=== PATIENT | male | born 1985 | race Caucasian/White ===

== ENCOUNTER 2016-03-28 17:45 | Emergency (ER) | payer OTHER ==
[~2016-03-28] VITALS: Ht 180.3 cm; Wt 86.2 kg
[~2016-03-28 17:45] MED LIST: AUGMENTIN 875 M1 TAB PO; EPIPEN 2-P0.3 MG/0.3 IM; PERCOCET 325 MG1 TA2 PO; PREDNISONE50 M1 PO
[2016-03-28 18:03] VITALS: BP 158/79
[2016-03-28 19:05] LABS: ABSOLUTE BASOPHIL COUNT 0.1 /CUMM (0.0-0.2); ABSOLUTE EOSINOPHIL COUNT 0.4 /CUMM (0.0-0.7); ABSOLUTE GRANULOCYTE CT 12.1 /CUMM (1.4-6.5); ABSOLUTE LYMPH COUNT 1.8 /CUMM (1.2-3.4); ABSOLUTE MONOCYTE COUNT 0.9 /CUMM (0.10-0.60); BASOPHIL % 0.5 % (0.0-2.0); EOSINOPHIL % 2.7 % (0-5); GRANULOCYTE % 78.9 % (42.2-75.2); HEMATOCRIT 45.3 % (42-52); MEAN CORPUSCULAR HGB 30.8 PG (27.0-31.0); MEAN CORPUSCULAR HGB CONC 33.7 G/DL (33.0-37.0); MEAN CORPUSCULAR VOLUME 91.3 FL (80.0-94.0); MEAN PLATELET VOLUME 8.3 FL (7.4-10.4); PLATELET COUNT 230 /CUMM (130-400); RBC DISTRIBUTION WIDTH 13.4 % (11.5-14.5); RED BLOOD CELL CT 4.96 /CUMM (4.70-6.10); WHITE BLOOD CELL COUNT 15.4 /CUMM (4.8-10.8)
--- NOTE | 2016-03-28 19:20 | ED GENERAL ADULT ---
History of Present Illness General Chief Complaint: Upper Respiratory Sx/Fever Stated Complaint: URI Source: patient Exam Limitations: no limitations Allergies Coded Allergies: venom-honey bee (bee venom (honey bee)) (Severe, ANAPHYLAXIS 10/23/15) Triage Note: RECEIVED 30 YO MALE C/O "I FEEL LIKE CRAP". PT REPORTS FEELING WARM, PRODUCTIVE YELLOW COUGH, BODY ACHES AND PAIN X 4 DAYS. NO C/O N/V/D OR ABDOMINAL PAIN Triage Nurses Notes Reviewed? yes HPI: This patient is a 30-year-old male who presented to the emergency department today for evaluation of upper respiratory complaints. The patient reported that his symptoms began approximately one week ago with a cough. The patient reported that his symptoms seemed to subside earlier in the week, but they resumed a couple days ago. He reported that his cough is productive of sputum. He reported intermittent chills and tactile fevers. He reported a couple days ago he was having some pain in his ears that felt like, "they need to pop." The patient also reported that one of the days this week he had a slightly sore throat, but not currently. He reported nasal congestion and face pressure. He denied any chest pain, difficulty breathing, abdominal pain, nausea, vomiting. (ESPERANZA GAONA,RBOERTO) Vital Signs & Intake/Output Vital Signs & Intake/Output ED Intake and Output 03/29 0000 03/28 1200 Intake Total 0 Output Total Balance 0 Intake, Oral 0 Patient 190 lb Weight Reconcile Medications AMOXICILLIN/POTASSIUM CLAV (Augmentin 875-125 Tablet) 875 MG/125 MG TAB 1 TAB PO BID DENTAL INFECTION Azithromycin 250 MG TABLET 1 DP PO AD SINUSITIS 2 the first day followed by 1 for days 2-5 Benzonatate (Tessalon Perle) 100 MG CAPSULE 1 CAP PO TID PRN COUGH Epinephrine (Epipen 2-Barber) 0.3 MG/0.3 ML AUTO.INJCT 1 INJ IM X1 PRN SEVERE ALLERGIC REACTION CALL 911 IF YOU USE THE EPIPEN OXYCODONE HCL/ACETAMINOPHEN (Percocet 5-325 MG Tablet) 325 MG/5 MG TAB 1-2 TAB PO Q4-6 PRN PRN PAIN EIGHT TABS...[id number] Prednisone 50 MG TABLET 1 TAB PO DAILY ALLERGIC REACTION (SERGE ADRIAN,YONG Warren) Past History Travel History Traveled to [place] past 21 day No Medical History Any Pertinent Medical History? see below for history Neurological: NONE EENT: NONE Cardiovascular: NONE Respiratory: NONE Gastrointestinal: NONE Hepatic: NONE Renal: NONE Musculoskeletal: NONE Psychiatric: NONE Endocrine: NONE Blood Disorders: NONE Cancer(s): NONE INSTALLATION COORDINATOR/Reproductive: NONE Surgical History Surgical History: N Psychosocial History What is your primary language Surinamese Tobacco Use: Current Daily Use Daily Tobacco Use Amount/Type: => 5 Cigarettes daily Family History Family History, If Any: MOTHER FH: diabetes mellitus Hx Contributory? No (ROBERTO MATA PA-C) Review of Systems Review of Systems Constitutional: Reports: see HPI. EENTM: Reports: see HPI. Respiratory: Reports: see HPI. Cardiovascular: Reports: no symptoms. GI: Reports: no symptoms. Genitourinary: Reports: no symptoms. Musculoskeletal: Reports: no symptoms. Skin: Reports: no symptoms. Neurological/Psychological: Reports: no symptoms. All Other Systems: Reviewed and Negative (ROBERTO MATA PA-C) Physical Exam Physical Exam General Appearance: well developed/nourished, no apparent distress, alert, awake Comments: Well-developed well-nourished person in no acute distress HEENT: Normal EENT exam, head normocephalic, moist mucous membranes PERRLA bilaterally, nasal congestion, mild pharyngeal erythema with no oral pharyngeal lesions or edema, no uvular shift, no tonsillar exudates, no trismus or drooling, bilateral external auditory canals with mild amount of cerumen and no erythema, bilateral TM nonbulging with mild amount of erythema Neck: Supple, no lymphadenopathy Back: Normal gait Cardiovascular: Regular rate and rhythm with no murmurs Respiratory: Chest nontender. No respiratory distress. Breath sounds clear to auscultation bilaterally with no wheezes, rales, rhonchi Extremity: Normal and equal pulses Neuro: Alert oriented x3, cranial nerves II through XII grossly intact. Skin: No appreciable rash on exposed skin, skin is warm and dry. Psych: Mood and affect is normal Core Measures ACS in differential dx? No CVA/TIA Diagnosis: No Severe Sepsis Present: No Septic Shock Present: No (ROBERTO MATA PA-C) Progress Differential Diagnoses I considered the following diagnoses in my evaluation of the patient: [Influenza , pneumonia, bronchitis, sinusitis, otitis media, otitis externa, strep pharyngitis] Diagnostic Imaging: Viewed by Me: Radiology Read. Discussed w/RAD: Radiology Read. CXR Impression: PATIENT: MARIELLA CHRISTIANSON PRESENT AGE: 30 PATIENT ACCOUNT NO: [id number] : 85 LOCATION: [facility] ORDERING PHYSICIAN: ROBERTO MATA PA-C SERVICE DATE: 03/28/16-1843 EXAM TYPE: RAD - XRY-CHEST XRAY, PA AND LATERAL EXAMINATION: XR CHEST CLINICAL INFORMATION: Cough, sputum production. Evaluate for pneumonia. COMPARISON: No relevant prior studies are available for comparison. TECHNIQUE: PA and lateral views of the chest were obtained. FINDINGS: The lungs are clear. The cardiomediastinal silhouette is normal in size. There is no pleural effusion or pneumothorax. No abnormalities are noted in the visualized bones. IMPRESSION: No acute cardiopulmonary disease. DICTATED BY: HAILEY MARIE MD DATE/TIME DICTATED:03/28/161913 SUPERVISOR MOLD YARD:WILLIAM DATE/TIME TRANSCRIBED:03/28/161913 CONFIDENTIAL, DO NOT COPY WITHOUT APPROPRIATE AUTHORIZATION. <Electronically signed in Other Vendor System> SIGNED BY: HAILEY MARIE MD 03/28/161917 Initial ED EKG: none (ESPERANZA GAONA,ROBERTO) Plan of Care: Orders Procedure Date/time Status RAPID VIRAL INFLUENZA A 03/28 1843 Complete COMPREHENSIVE METABOLIC PANEL 03/28 1843 Complete CBC WITHOUT DIFFERENTIAL 03/28 1843 Complete Laboratory Tests 03/28/16 1850: Anion Gap 8, Estimated GFR > 60, BUN/Creatinine Ratio 13.3, Glucose 116 H, Calcium 9.0, Total Bilirubin 0.6, AST 21, ALT 37, Alkaline Phosphatase 56, Total Protein 6.2 L, Albumin 3.7, Globulin 2.5, Albumin/Globulin Ratio 1.5, CBC w Diff NO MAN DIFF REQ, RBC 4.96, MCV 91.3, MCH 30.8, RDW 13.4, MPV 8.3, Gran % 78.9 H, Lymphocytes % 11.9 L, Monocytes % 6.0, Eosinophils % 2.7, Basophils % 0.5, Absolute Granulocytes 12.1 H, Absolute Lymphocytes 1.8, Absolute Monocytes 0.9 H, Absolute Eosinophils 0.4, Absolute Basophils 0.1, PUBS MCHC 33.7 Departure Departure Disposition: HOME OR SELF CARE Condition: Stable Clinical Impression Primary Impression: Sinusitis Qualifiers: Sinusitis location: unspecified location Chronicity: unspecified Qualified Code: J32.9 - Chronic sinusitis, unspecified Referrals: MICHELLE ADRIAN,CONCHIS Iniguez (PCP/Family) Additional Instructions: Please take antibiotic as prescribed and for its full duration. Take medication for cough as prescribed. Please rest and be sure to stay hydrated. Please call to make a follow-up appointment with your primary care physician. Return for any worsening symptoms or concerns. Departure Forms: Customer Survey General Discharge Information Prescriptions: Current Visit Scripts Azithromycin 1 DP PO AD #6 TAB 2 the first day followed by 1 for days 2-5 Benzonatate (Tessalon Perle) 1 CAP PO TID PRN COUGH #15 CAP (ROBERTO MATA PA-C) PA/INSURANCE SALES PRODUCER Co-Sign Statement Statement: ED Attending supervision documentation- [] I saw and evaluated the patient. I have also reviewed all the pertinent lab results and diagnostic results. I agree with the findings and the plan of care as documented in the PA's/INSURANCE SALES PRODUCER's documentation. [x] I have reviewed the ED Record and agree with the PA's/INSURANCE SALES PRODUCER's documentation. [] Additions or exceptions (if any) to the PAs/INSURANCE SALES PRODUCER's note and plan are summarized below: [] (SERGE ADRIAN,YONG Warren) Critical Care Note Critical Care Note Critical Care Time: non-applicable (ROBERTO MATA PA-C) [x] I have reviewed the ED Record and agree with the PA's/INSURANCE SALES PRODUCER's documentation. [] Additions or exceptions (if any) to the PAs/INSURANCE SALES PRODUCER's note and plan are summarized below: [] (YONG VALENTINE MD) Critical Care Note Critical Care Note Critical Care Time: non-applicable (ROBERTO MATA PA-C)
[2016-03-28] MEDS ORDERED: TESSALON PERLE100 M1 PO (19:40)
[2016-03-28] MEDS ORDERED: AZITHROMYCIN250 M1 PO (19:40)
== END 2016-03-28 20:00 ==
LOC: ERH 17:45
PROVIDERS: Physician Assistant
DX: J32.9 Chronic sinusitis, unspecified (principal); F17.210 Nicotine dependence, cigarettes, uncomplicated
CPT/HCPCS: 87804; 87804-59